=== PATIENT | female | born 1955 | race Caucasian/White ===

== ENCOUNTER 2021-06-19 12:06 | Emergency (ER) | payer MEDICARE ==
[~2021-06-19] VITALS: Ht 162.6 cm; Wt 68.2 kg
[2021-06-19] MEDS ORDERED: FAMOTIDINE 20 MG/2 ML IVPush ONE (13:00)
[2021-06-19] MEDS ORDERED: ONDANSETRON 2MG/ML, 2ML IVPush ONE (13:00)
[2021-06-19] MEDS ORDERED: SODIUM CHLORIDE 0.9% 1,000ML IVBOLUS ONE (13:00)
[2021-06-19] MEDS ORDERED: SODIUM CHLORIDE FLUSH 10ML SYR IVF ONE ×2 (13:00→14:30)
[2021-06-19] MEDS ORDERED: ONDANSETRON 2MG/ML, 2ML ONE (13:04)
[2021-06-19] MEDS ORDERED: FAMOTIDINE 20 MG/2 ML ONE (13:04)
[2021-06-19 13:24] LABS: BASOPHILS % (AUTO) 0 % (0-1); EOSINOPHILS % (AUTO) 0 % (1-7); LYMPHOCYTES % (AUTO) 21 % (22-44); MEAN CORPUSCULAR HEMOGLOBIN 30.2 pg (27.0-34.8); MEAN PLATELET VOLUME 9.2 fL (7.4-10.4); MONOCYTES % (AUTO) 14 % (2-9); NEUTROPHILS % (AUTO) 65 % (42-75); PLATELET COUNT 120 x10^3/uL (130-400); RED BLOOD COUNT 4.43 x10^6/uL (3.82-5.3)
[2021-06-19 13:33] LABS: ALBUMIN 2.6 g/dL (3.4-5.0); ANION GAP 8 mmol/L (5-15); CALCIUM 8.3 mg/dL (8.5-10.1); CHLORIDE 105 mmol/L (98-107)
[2021-06-19 13:37] LABS: ALANINE AMINOTRANSFERASE 24 U/L (12-78); ALKALINE PHOSPHATASE 41 U/L (45-117); BILIRUBIN,TOTAL 0.4 mg/dL (0.2-1.0); TOTAL PROTEIN 6.9 g/dL (6.4-8.2)
[2021-06-19] MEDS ORDERED: METOCLOPRAMIDE 5 MG/ML, 2ML IVPush ONE (14:30)
[2021-06-19] MEDS ORDERED: METOCLOPRAMIDE 5 MG/ML, 2ML ONE (14:34)
--- NOTE | 2021-06-19 14:48 | NUR ---
BIB EMS FOR N/V FOR THE PAST 6 DAYS. PT ON A ROAD TRIP. COUGH, FEVER, FATIGUE,RICHEY, BODY ACHES, DIARRHEA. BS 111 PER EMS. EMS GAVE 4 MG ZOFRAN. PT INBED ON CONT CAQRDIAC MONITOR, SPO2, BOP Q 30 MIN. SIDE RAILS UP X2, CALL LIGHT IN REACH
[2021-06-19] MEDS ORDERED: OMNIPAQUE 350 MG/ML, 100ML BOTTLE ONE (15:06)
[2021-06-19 15:26] LABS: MICROSCOPIC INDICATED
[2021-06-19] MEDS ORDERED: CEFTRIAXONE 2 GM in DEXTROSE 5% 50 ML IVPB ONE (15:30)
--- NOTE | 2021-06-19 17:06 | NUR ---
PO FLUID CHALLENGE DONE, PT TOLLERATED WELL. NOTIFIED
[2021-06-19 18:01] VITALS: BP 124/74
== END 2021-06-19 18:03 | disposition home or self-care (01) ==
LOC: ED 18:00
DX: J18.9 Pneumonia, unspecified organism (principal); R11.2 Nausea with vomiting, unspecified; Z87.891 Personal history of nicotine dependence
CPT/HCPCS: 36415; 71045; 74177; 80053; 81001; 83690; 85025; 87086; 96361; 96365; 96366; 96375; 99285; J0696; J2405; J2765; J7030; Q9967